=== PATIENT | female | born 2000 | race Caucasian/White ===

== ENCOUNTER 2021-06-03 20:05 | Emergency (ER) ==
[~2021-06-03] VITALS: Ht 172.7 cm; Wt 85.2 kg
== END 2021-06-04 01:07 | disposition left against medical advice (07) ==
LOC: M ED 20:05
DX: Z53.21 Procedure and treatment not carried out due to patient leaving prior to being seen by health care provider (principal)

== ENCOUNTER 2023-06-30 06:27 | Emergency (ER) | payer OTHER ==
[~2023-06-30] VITALS: Ht 172.7 cm; Wt 100.1 kg
[2023-06-30 06:28] VITALS: BP 120/72; TEMP 98.8; O2SAT 97
[2023-06-30] MEDS ORDERED: LORY1TAB2 (06:34)
== END 2023-06-30 08:00 | disposition home or self-care (01) ==
LOC: M ED 06:27
DX: S93.402A Sprain of unspecified ligament of left ankle, initial encounter (principal); X50.0XXA Overexertion from strenuous movement or load, initial encounter; Z87.891 Personal history of nicotine dependence; Z88.2 Allergy status to sulfonamides; Y92.9 Unspecified place or not applicable; Y93.01 Activity, walking, marching and hiking; Y99.9 Unspecified external cause status; Z79.899 Other long term (current) drug therapy